=== PATIENT | male | born 1950 | race Caucasian/White ===

== ENCOUNTER 2020-04-14 09:32 | Emergency (ER) | payer MEDICARE, MEDICAID, SELFPAY ==
--- NOTE | 2020-04-14 | ECG_ITS ---
Test Reason : CHEST PAIN Blood Pressure : / mmHG Vent. Rate : 078 BPM Atrial Rate : 078 BPM P-R Int : 170 ms QRS Dur : 090 ms QT Int : 386 ms P-R-T Axes : 034 -03 038 degrees QTc Int : 440 ms Normal sinus rhythm Inferior infarct , age undetermined Anterior infarct , possibly acute ACUTE ND / STEMI Abnormal ECG No previous ECGs available Referred By: Generic ED Physician Electronically Signed By:CAMILA VAN
[2020-04-14 09:52] VITALS: BP 183/112; PULSE 86; RESP 18; TEMP 36.8; O2SAT 98; BMI 34.5
--- NOTE | 2020-04-14 09:58 | ED_ITS ---
HPI - General Adult General Chief complaint: Chest Pain Stated complaint: chest pain Time Seen by Provider: 04/14/20 09:44 Source: patient Mode of arrival: ambulatory Limitations: no limitations History of Present Illness HPI narrative: 69-year-old male who presents emergency department for evaluation of chest pain. The patient states that he woke up at 3:00 a.m. with chest pain. He points to his anterior chest when asked to localize the pain. He describes the pain is an intermittent tightness. He states the pain initially lasted minutes and then resolved but he had multiple episodes throughout the morning. He states that at 9:00 a.m. the pain became constant and more severe. He states the pain is currently 3 to 4/10. He has associated nausea only. He denies lightheadedness, dizziness, neck, jaw, arm or back pain. He denied diaphoresis. The patient states that he has never had a heart attack before. Does have a history diabetes mellitus and high cholesterol. He denies tobacco and alcohol use. Initial EKG is concerning for anterior wall MA with ST segment elevation in V1 through V4 with Q-waves in leads 3, AVF, V1 through V4. The patient was given aspirin 324 mg orally atorvastatin 80 mg orally, Brilinta 180 mg orally, IV heparin bolus 5000 units, nitroglycerin 0.4 mg sublingual x3. Related Data Allergies Allergy/AdvReac Type Severity Reaction Status Date / Time No Known Allergies Allergy Verified 04/14/20 09:58 [No Known Allergies*] Review of Systems Review of Systems: Yes all other systems are reviewed and are negative Neurologic: Reports Abnormal speech present [facility] Past Medical History [facility] Narrative: Patient has history of diabetes mellitus, high cholesterol. Denies tobacco, alcohol or drug use. Social History Social History Advance Directives: No Advance Directives Information Provided: No Physical Exam Vital Signs: Vital Signs: Last Vital Signs Temp 98.2 F 04/14/20 09:52 Pulse 88 04/14/20 10:42 Resp 18 04/14/20 09:52 BP 183/112 H 04/14/20 10:42 Pulse Ox 98 04/14/20 09:52 Body Mass Index 34.5 Const: General: cooperative Nutritional Appearance: obese Orientation /consciousness: oriented to person and oriented to place Limitations: no limitations HENMT: Head: Yes normal to inspection, Yes normocephalic and Yes atraumatic Ears: external ears normal General nose exam: Normal external nose present Face and sinus: Yes normal facial exam Mouth: Normal oral and palatal mucosa present Throat: Yes posterior oropharynx normal Eyes: Periorbital: periorbital findings normal Eyelids: Yes eyelids normal Conjunctivae: conjunctivae normal Sclerae: sclerae normal Corneas: corneas normal Pupils: Equal, round and reactive pupils present Direct Ophthalmoscopy: normal light reflex Neck: Neck: Yes full ROM, Yes no lymphadenopathy, Yes no meningeal signs, Yes trachea midline and Yes supple Chest: Chest palpation & inspection: normal inspection of the chest and normal palpation of entire chest wall Resp: Effort & Inspection: normal respiratory effort and able to speak in complete sentences Auscultation: clear to auscultation bilaterally Cardio: Rate: regular rate Rhythm: regular rhythm Heart sounds: S1 normal heart sound present, S2 normal heart sound present and no murmurs GI: Inspection: Yes normal to inspection Palpation (GI): Soft to palpation, nontender, no guarding, not rigid and No hepatosplenomegaly present : General: Yes no CVA tenderness Back/Spine/Pelvis: Back: no CVA tenderness Cervical Spine: normal cervical lordosis Thoracic/Lumbar Spine: thoracic and lumbar spine normal to inspection Skin: Lesions: no lesions Rashes: no rashes Wounds: no wounds Neuro: General: oriented to person, oriented to place and no meningeal signs Cranial nerves: Yes CN's II-XII intact bilaterally and Yes Equal, round and reactive pupils present Cognition (Neuro): normal cognition Speech: Abnormal speech present Motor exam (neuro): 5/5 motor strength present throughout Extrem: General: Yes normal to inspection and Yes full ROM Psych: Appearance: well kempt Mental Status: mental status grossly normal Speech and movement: Normal speech and movement present Affect: normal affect Attitude: cooperative Thought process: Normal thought process present Thought content: Normal thought content present Course Course Course Narrative: 69-year-old male who presents emergency department for evaluation of chest pain which was intermittent and again at 3:00 a.m., he had an episode at 0 800 and 9:00 a.m.. On presentation, the patient's 12 lead EKG is concerning for possible acute anterior wall myocardial infarction. The patient was given STEMI medications including aspirin 324 mg to chew, atorvastatin 80 mg orally, Brilinta 190 mg orally and heparin 5000 units IV bolus. The patient was treated with nitroglycerin 0.4 mg sublingually Q 5 minutes x3 with some improvement of his pain. He also required fentanyl 50 mcg IV for pain and Zofran 4 mg IV for nausea. I did discuss the patient's presentation with the covering locks tender, Dr. 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 1120 call laboratory evaluation revealed a normal CBC, normal coags, elevated BUN and creatinine of 24 and 1.28, elevated glucose of 225, normal LFTs. The patient's troponin I high sensitivity was elevated at 101 and this is in the 99th percentile range for the patient's sex suggested they has acute myocardial injury which is consistent with his EKG. Medical Decision Making Lab Data Result diagrams: 04/14/20 09:59 04/14/20 09:59 Labs: Lab Results 04/14/20 04/14/20 04/14/20 Range/Units 09:59 09:59 09:59 WBC 9.9 (4.8-10.8) X10*3/uL RBC 4.99 (4.60-5.80) X10*6/uL Hgb 15.3 (14.0-18.0) g/dl Hct 46.3 (42-52) % MCV 92.8 (80-98) fL MCH 30.7 (27.0-33.0) pg MCHC 33.0 (31.0-36.0) g/dl RDW 12.4 (11.0-16.0) % Plt Count 340 (160-400) X10*3/uL MPV 10.5 (9.4-12.4) fL Immature Gran % (Auto) 0.4 (0.0-0.4) % Neut % (Auto) 65.3 (45-73) % Lymph % (Auto) 25.1 (20-40) % [place] % (Auto) 7.2 (2-11) % Eos % (Auto) 1.4 (0-4) % Baso % (Auto) 0.6 (0-2) % Lymph # (Auto) 2.5 (1.2-4.9) X10*3/uL [place] # (Auto) 0.7 (0.1-1.2) X10*3/uL Eos # (Auto) 0.1 (0.0-0.4) X10*3/uL Baso # (Auto) 0.1 (0.0-0.2) X10*3/uL Abs Immat Gran (auto) 0.04 H (0.00-0.03) X10*3/uL Absolute Neuts (auto) 6.5 (2.0-8.3) X10*3/uL Absolute Nucleated RBC 0.000 (0.0-0.012) X10*3/uL Nucleated RBC % (auto) 0.0 (0.0-0.2) /100WBC PT 11.7 (10.8-13.0) SEC INR 1.0 (0.9-1.1) APTT 34.5 (24.1-38.0) SEC Sodium 140 (135-145) mmol/L Potassium 4.2 (3.3-5.1) mmol/L Chloride 104 (96-108) mmol/L Carbon Dioxide 26 (22-29) mmol/L Anion Gap 14 (12-20) BUN 24 H (9-16) mg/dL Creatinine 1.28 (0.5-1.4) mg/dL Estim Creat Clear Calc 73.4 Estimated GFR 56 Random Glucose 225 H (60-115) mg/dL Calcium 9.1 (8.4-10.2) mg/dL Total Bilirubin 0.7 (0.0-1.0) mg/dL AST 18 (5-37) U/L ALT 23 (0-40) U/L Alkaline Phosphatase 100 (39-117) U/L Troponin I High Sens (<3.5-35.0) ng/L Total Protein 7.7 (6.5-8.0) g/dL Albumin 4.3 (3.5-5.0) g/dL Lipase 48 (8-78) U/L COVID-19 (SUSAN) (Negative) COVID-19 Clin Com 04/14/20 04/14/20 Range/Units 09:59 09:59 WBC (4.8-10.8) X10*3/uL RBC (4.60-5.80) X10*6/uL Hgb (14.0-18.0) g/dl Hct (42-52) % MCV (80-98) fL MCH (27.0-33.0) pg MCHC (31.0-36.0) g/dl RDW (11.0-16.0) % Plt Count (160-400) X10*3/uL MPV (9.4-12.4) fL Immature Gran % (Auto) (0.0-0.4) % Neut % (Auto) (45-73) % Lymph % (Auto) (20-40) % [place] % (Auto) (2-11) % Eos % (Auto) (0-4) % Baso % (Auto) (0-2) % Lymph # (Auto) (1.2-4.9) X10*3/uL [place] # (Auto) (0.1-1.2) X10*3/uL Eos # (Auto) (0.0-0.4) X10*3/uL Baso # (Auto) (0.0-0.2) X10*3/uL Abs Immat Gran (auto) (0.00-0.03) X10*3/uL Absolute Neuts (auto) (2.0-8.3) X10*3/uL Absolute Nucleated RBC (0.0-0.012) X10*3/uL Nucleated RBC % (auto) (0.0-0.2) /100WBC PT (10.8-13.0) SEC INR (0.9-1.1) APTT (24.1-38.0) SEC Sodium (135-145) mmol/L Potassium (3.3-5.1) mmol/L Chloride (96-108) mmol/L Carbon Dioxide (22-29) mmol/L Anion Gap (12-20) BUN (9-16) mg/dL Creatinine (0.5-1.4) mg/dL Estim Creat Clear Calc Estimated GFR Random Glucose (60-115) mg/dL Calcium (8.4-10.2) mg/dL Total Bilirubin (0.0-1.0) mg/dL AST (5-37) U/L ALT (0-40) U/L Alkaline Phosphatase (39-117) U/L Troponin I High Sens 101.0 H (<3.5-35.0) ng/L Total Protein (6.5-8.0) g/dL Albumin (3.5-5.0) g/dL Lipase (8-78) U/L COVID-19 (SUSAN) Negative (Negative) COVID-19 Clin Com See Note ECG Data Interpretation: 0940: Normal sinus rhythm rate of 78, normal MA, QRS and QTC intervals, Q-waves in lead 3, AVF, V1 through V4 with ST segment elevation V1 through V4 greater than 2 mm, no old EKG for comparison. This EKG is consistent with an acute anterior wall MA and possible old inferior wall MA. Critical Care Time Critical Care Time Critical Care Time: Yes Total Critical Care Time: 35 Attestation: Critical Care: The patient was critically ill with a high probability of imminent or life threatening deterioration. I spent greater than 30 minutes of discontinuous time evaluating the patient,delivering critical care at the bedside, discussing and evaluating pertinent data with consultants. Critical care time does not include time spent performing separately billable procedures or teaching. Total time spent performing critical care was 35 minutes. Discharge Plan Discharge Clinical Impression: Acute anterior wall MA Patient Disposition: [facility] Transfer Details: TO [facility] REAL ESTATE ANALYST Discharge Date/Time: 04/14/20 10:49
--- NOTE | 2020-04-14 09:58 | PC.NURSE ---
ATTENDING TO BEDSIDE DURING TRIAGE. IVS EST 20 G R AC 18 G L AC. O2 STATED. MEDICATED PER ORDERS
[2020-04-14 10:00] VITALS: BP 142/87; PULSE 88
--- NOTE | 2020-04-14 10:02 | PC.NURSE ---
SECOND NTG SL GIVEN - AFTER PAIN INCREASING TO 3/10
[2020-04-14 10:05] VITALS: BP 132/84; PULSE 118
[2020-04-14 10:05] LABS: MANUAL DIFF FLAG NO
[2020-04-14] MEDS: ondansetron HCL 4 MG/2 ML VIAL IVPUSH (10:07)
--- NOTE | 2020-04-14 10:07 | PC.NURSE ---
10:[address] ORR (SPELLING SHEREE) RETURNS CALL FROM [facility] AND SPEAKS WITH DR JENKINS @ THIS TIME
--- NOTE | 2020-04-14 10:09 | PC.NURSE ---
3RD NTG GIVEN.
--- NOTE | 2020-04-14 10:12 | PC.NURSE ---
10:12AM WAX SPECIALIST RN CALLS FOR REPORT GIVES ACCEPTING DR DR DAWN AND ASKS TO SPEAK WITH RN IN CHARGE OF THIS PT FOR REPORT
[2020-04-14 10:13] LABS: Basophils Absolute Auto 0.1 X10*3/uL (0.0-0.2); Basophils Percent Auto 0.6 % (0-2); Eosinophils Absolute Auto 0.1 X10*3/uL (0.0-0.4); Eosinophils Percent Auto 1.4 % (0-4); Hematocrit 46.3 % (42-52); Hemoglobin 15.3 g/dl (14.0-18.0); Imm Gran Abs Auto 0.04 X10*3/uL (0.00-0.03); Imm Gran Pct Auto 0.4 % (0.0-0.4); Lymphocytes Absolute Auto 2.5 X10*3/uL (1.2-4.9); Lymphocytes Percent Auto 25.1 % (20-40); Mean Corpuscular Hemoglobin 30.7 pg (27.0-33.0); Mean Corpuscular Volume 92.8 fL (80-98); Mean Platelet Volume 10.5 fL (9.4-12.4); Monocytes Absolute Auto 0.7 X10*3/uL (0.1-1.2); Monocytes Percent Auto 7.2 % (2-11); Neutrophils Absolute Auto 6.5 X10*3/uL (2.0-8.3); Neutrophils Percent Auto 65.3 % (45-73); Platelet Count 340 X10*3/uL (160-400); Red Blood Count 4.99 X10*6/uL (4.60-5.80); Red Cell Distribution Width 12.4 % (11.0-16.0); White Blood Count 9.9 X10*3/uL (4.8-10.8)
[2020-04-14 10:15] LABS: Prothrombin Time 11.7 SEC (10.8-13.0)
[2020-04-14 10:17] LABS: Partial Thromboplastin Time 34.5 SEC (24.1-38.0)
[2020-04-14 10:25] LABS: COVID-19 Test Negative (Negative)
--- NOTE | 2020-04-14 10:36 | PC.NURSE ---
PT WAS ACCEPTED AT [facility] BASE CLOTH INSPECTOR. DR TO AND NURSE TO NURSE DONE. PAIN TO 1/10 AT TIME OF DEPARTURE. REPORT TO EMS.
[2020-04-14 10:37] LABS: Alanine Aminotransferase 23 U/L (0-40); Albumin Level 4.3 g/dL (3.5-5.0); Alkaline Phosphatase 100 U/L (39-117); Anion Gap 14 (12-20); Aspartate Amino Transferase 18 U/L (5-37); Bilirubin Total 0.7 mg/dL (0.0-1.0); Blood Urea Nitrogen 24 mg/dL (9-16); Calcium 9.1 mg/dL (8.4-10.2); Carbon Dioxide 26 mmol/L (22-29); Chloride 104 mmol/L (96-108); Creatinine Clr Calc Pharmacy 73.4; Estimated Glomerular Filt Rate 56; Glucose Random 225 mg/dL (60-115); Lipase 48 U/L (8-78); Potassium 4.2 mmol/L (3.3-5.1); Sodium 140 mmol/L (135-145); Total Protein 7.7 g/dL (6.5-8.0)
[2020-04-14 10:38] VITALS: BP 129/77; PULSE 82
[2020-04-14] MEDS: Heparin Sodium,Porcine 5,000 UNIT/ML VIAL 5000 UNIT IVPUSH (10:40)
[2020-04-14] MEDS: Atorvastatin Calcium 80 MG TABLET PO (10:40)
[2020-04-14] MEDS: fentaNYL citrate/PF 100 MCG/2 ML VIAL 25 MCG IVPUSH (10:41)
[2020-04-14] MEDS: Ticagrelor 90 MG TABLET 180 MG PO (10:41)
[2020-04-14 10:42] VITALS: BP 183/112; PULSE 88
[2020-04-14] MEDS: Nitroglycerin 0.4 MG TAB.SUBL SUBLINGUAL (10:42)
[2020-04-14] MEDS: Aspirin 81 MG TAB.CHEW 324 MG PO (10:47)
--- NOTE | 2020-04-14 10:48 | PC.NURSE ---
TOTAL OF 3 0.4MG SL NTG GIVEN WHILE IN ED.
== END 2020-04-14 10:49 | disposition short-term general hospital (02) ==
PROVIDERS: Emergency Provider Emergency Medicine Emergency Medical Services; PCP Internal Medicine
DX: I21.09 ST elevation (STEMI) myocardial infarction involving other coronary artery of anterior wall (principal); R11.0 Nausea; Z20.822 Contact with and (suspected) exposure to COVID-19; Z79.899 Other long term (current) drug therapy
CPT/HCPCS: 36415; 80053; 83690; 84484; 85025; 85610; 85730; 87635; 93005; 96374; 96375; 99283; 99291; J2405; J3010

== ENCOUNTER 2024-01-23 06:05 | Emergency (ER) | payer MEDICARE, MEDICAID, SELFPAY ==
--- NOTE | ~2024-01-23 | CT_ITS ---
EXAMINATION: CT CERVICAL SPINE WITHOUT CONTRAST CLINICAL INFORMATION: neck trauma. COMPARISON: None. TECHNIQUE: Contiguous helical images of the cervical spine were obtained without IV contrast. Multiplanar reconstructions were performed. This CT examination was performed using dose optimization techniques as appropriate, variously including the following: * Automated exposure control * Adjustment of mA and/or kV according to patient size (this includes techniques or standardized protocols for targeted exams where dose is matched to indication/reason for exam; i.e. extremities or head) Use of iterative reconstruction technique DLP: 1504 mGy-cm (including chest) FINDINGS: No evidence of acute fracture or traumatic subluxation of the cervical spine. There is straightening of the normal cervical curvature with otherwise maintained sagittal alignment. Vertebral body heights are normal. Mild degenerative disc disease from C5 to C7 with loss of intervertebral disc and marginal osteophytes. Calcification of the posterior longitudinal ligament results in mild canal stenosis at C2-C3 and C3-C4. Mild bilateral C5-C6 and C6-C7 neural foraminal stenosis. Mild atlantodental spondylosis. The atlantoaxial and atlantooccipital articulations are intact. No prevertebral soft tissue swelling. There is no cervical lymphadenopathy. The visualized thyroid gland is unremarkable. The visualized lung apices are clear. Mucous noted along the right lateral tracheal wall. The visualized base of the brain is unremarkable. CT/CT cervical spine wo IV con IMPRESSION: 1. No evidence of acute fracture or traumatic subluxation of the cervical spine. 2. Mild degenerative disc disease from C5 to C7. Electronically signed by: Oly Mujica DO 01/23/2024 09:28 AM [facility]
--- NOTE | ~2024-01-23 | CT_ITS ---
EXAMINATION: CT CHEST WITHOUT CONTRAST CLINICAL INFORMATION: Severe posterior rib pain. Shortness of breath. COMPARISON: None available. TECHNIQUE: Multidetector volumetric CT imaging of the chest was done. Axial MIP volume rendering provided. Sagittal and coronal reformatted images were obtained. This CT examination was performed using dose optimization techniques as appropriate, variously including the following: *Automated exposure control *Adjustment of mA and/or kV according to patient size (this includes techniques or standardized protocols for targeted exams where dose is matched to indication/reason for exam; i.e. extremities or head) *Use of iterative reconstruction technique DLP: 308 mGy-cm FINDINGS: Bilateral, scattered, round oblique distributed less than 4 mm calcified pulmonary nodules in both lungs. No consolidation, pleural effusion or pneumothorax. No bronchiectasis. No honeycombing. Respiratory airways patent. Calcified lymph nodes, perihilar and mediastinum. Calcified plaques in the coronary arteries and thoracic aortic arch. No aneurysm in the thoracic aorta. No pericardial effusion. No acute rib fractures in the included ribs. Multilevel syndesmophyte formation and marginal osteophyte formation without acute fracture or listhesis in the axial skeleton. Osteopenia versus osteoporosis. Sternum is intact. Clavicles and scapula are intact. CT/CT chest wo IV con IMPRESSION: Probable granulomatous disease such as histoplasmosis without acute airspace disease. No gross acute rib fracture. Coronary artery disease. Fleischner guidelines were followed. Electronically signed by: Kostas Hassan MD 01/23/2024 09:45 AM [facility]
[2024-01-23 06:25] VITALS: BP 117/72; PULSE 71; RESP 18; TEMP 36.9; O2SAT 99; BMI 30.7
[2024-01-23 06:55] VITALS: BP 111/64; PULSE 65; RESP 15; TEMP 36.9; O2SAT 97
--- NOTE | 2024-01-23 07:06 | ED.BACK ---
HPI - Back Pain/Injury General Chief Complaint: Back Pain/Injury Stated Complaint: severe upper back pain after falling yesterday Time Seen by Provider: 01/23/24 06:40 Source: patient and old records reviewed Mode of arrival: ambulatory Limitations: no limitations History of Present Illness ED Provider: SADE TABOR Narrative: 73 yo male with PMH of DM, HLD, CAD s/p stent on aspirin and plavix here with c/o planting a tree yesterday he tried to get up using a shovel but he states it wasnt graceful he then landed directly on posterior ribs and back. No head trauma or LOC, no neck pain. He got up on his own but as the day went by severe upper back pain and it takes his breath. He denies any other issues. No dizziness, no confusion MD elicited complaint: back pain and back injury Onset (ago): day(s) (1) Timing: progressively worsening Severity: severe Similar Symptoms Previously: No Quality: sharp Location: thoracic spine Radiation: chest Exacerbating factors: movement, walking and deep breaths Relieving factors: immobilization Context: fall Associated symptoms: denies other symptoms Work related injury: No Related Data Previous Rx's ?Medication ?Instructions ?Recorded lidocaine 5 % topical patch 1 patch topical DAILY #30 ea 01/23/24 morphine 15 mg immediate release 15 mg PO Q6H PRN pain #12 tabs 01/23/24 tablet Allergies Allergy/AdvReac Type Severity Reaction Status Date / Time No Known Allergies Allergy Verified 01/23/24 06:30 [No Known Allergies*] Review of Systems Review of Systems: Constitutional : No Weight loss, No Fever, No Chills, ENT/Mouth : No Hearing loss, No Ear Pain, No Nasal Congestion, No Sinus Pain, No Hoarseness, No sore throat, No Rhinorrhea, No Swallowing Difficulty Cardiovascular : No Chest Pain, pos SOB Respiratory : No Cough, No Dyspnea Gastrointestinal : No Nausea, No Vomiting, No Diarrhea, No abdominal Pain, No Hematochezia, No Melena Genitourinary : No Dysuria, No Urinary Frequency, No Hematuria, No Urinary Incontinence, Musculoskeletal : positive back pain Skin : No Skin Lesions, No rash Neuro : No Weakness, No Numbness, No Paresthesias, no loss of bowel or bladder incontinence, no saddle anesthesia All other systems reviewed and are negative [facility] Past Medical History Attestation statement: The following information was validated with the patient. Source: old records reviewed Medical History Hyperlipidemia Diabetes CAD (coronary artery disease) Social History Social History Smoked in Last 30 Days: No Use of substances other than those prescribed or required for medical reasons: No Advance Directives: No Advance Directives Information Provided: No Physical Exam Vital Signs: Vital Signs: Last Vital Signs Temp 98.4 F 01/23/24 06:55 Pulse 65 01/23/24 06:55 Resp 15 01/23/24 06:55 BP 111/64 01/23/24 06:55 Pulse Ox 97 01/23/24 06:55 O2 Del Method Room Air 01/23/24 06:55 BMI result Body Mass Index 30.7 Appearance: Alert. Oriented X3. No acute distress. Eyes: Pupils equal, round and reactive to light. ENT: Pharynx normal. Neck: Normal inspection. Neck supple. Back: ttp along spinous process between shoulder blades no obvious step - off - he is distal NV intact good strength in grasp and SILT intact CVS: Normal heart rate and rhythm. Pulses normal. Respiratory: No respiratory distress. Breath sounds normal. Abdomen: Soft and non-tender. Skin: Skin warm and dry. Normal skin color. Normal skin turgor. Extremities: No lower extremity edema. No calf ttp Neuro: Oriented X 3. No motor deficit. No sensory deficit. Medical Decision Making Medical Decision Making MDM Narrative: 73 yo male with PMH of DM, HLD, CAD s/p stent on aspirin and plavix here with c/o mechanical fall yesterday injuring upper back no head strike or LOC he has no has severe posterior rib pain and spinous process pain after accident. At this time given his complaints and areas of pain I am going to order - CT cspine and CT chest. He does not want pain medications now. Suspect fracture, PTX, compression frx, contusion Differential Diagnosis Differential Diagnoses: The differential diagnosis associated with the presentation includes fracture, PTX, compression frx, contusion Admission/Observation Consideration of admission/observation: Escalation of care including admission/observation considered no acute fracture is able to get up and walk VS stable Independent Interpretation I performed an independent interpretation of an: CT Scan (no trauma) Radiology Impression Discussion of test interpretation with radiology: I have reviewed the radiologist's reading. Independent Historian Clinical information obtained from an independent historian. History obtained from or confirmed by: Spouse External Record Review External record reviewed: Outpatient record Prescription Management I considered prescription management with: Pain Medication and Other Discharge Plan Discharge Clinical Impression: Thoracic back pain Qualifiers: Chronicity: acute Back pain laterality: midline Qualified Code(s): M54.6 - Pain in thoracic spine Patient Disposition: Home, Self-Care Instructions: Back Pain (ED) Additional Instructions: no acute fracture seen of ribs or cervical/thoracic spine lungs inflated and normal at this time treatment is no lifting more than 10lbs for 2 weeks incentive spirometer 10 breaths every other hour while awake return for worsening pain, numbness, weakness, cough, fevers, sputum production CT scan has chronic lung findings that your doctor can follow nothing acute CT/CT cervical spine wo IV con IMPRESSION: 1. No evidence of acute fracture or traumatic subluxation of the cervical spine. 2. Mild degenerative disc disease from C5 to C7. CT/CT chest wo IV con IMPRESSION: Probable granulomatous disease such as histoplasmosis without acute airspace disease. No gross acute rib fracture. Coronary artery disease. Fleischner guidelines were followed Prescriptions: New lidocaine 5 % adhesive patch,medicated 1 patch topical DAILY Qty: 30 0RF Rx Instructions: leave on most painful area for up to 12 hrs morphine 15 mg tablet 15 mg PO Q6H PRN (Reason: pain) Qty: 12 0RF Rx Instructions: partial fill okay; Partial Fill upon patient request. Print Language: Tamazight
[2024-01-23 10:00] VITALS: BP 105/62; PULSE 60; RESP 18; TEMP 36.6; O2SAT 98
[2024-01-23] MEDS: Lidocaine 4 % Patch ADH..PATCH 1 PATCH TRANSDERMA (10:03)
[2024-01-23 10:10] VITALS: BP 105/62; PULSE 60; RESP 18; TEMP 36.6; O2SAT 98
== END 2024-01-23 10:10 | disposition home or self-care (01) ==
PROVIDERS: Emergency Provider Emergency Medicine; PCP Internal Medicine
DX: M54.6 Pain in thoracic spine (principal); Z91.81 History of falling; E11.9 Type 2 diabetes mellitus without complications; E78.5 Hyperlipidemia, unspecified; Z79.82 Long term (current) use of aspirin
CPT/HCPCS: 71250; 72125; 99284

== ENCOUNTER → 2024-01-23 07:24 | Outpatient (BNV) | payer MEDICARE, MEDICAID, SELFPAY | PROVIDERS: Emergency Provider Emergency Medicine; PCP Internal Medicine; Visit Provider Radiology Diagnostic Radiology | DX: I25.10 Atherosclerotic heart disease of native coronary artery without angina pectoris (principal); B39.9 Histoplasmosis, unspecified | CPT/HCPCS: 71250 ==